=== PATIENT | male | born 1940 | race Caucasian/White ===

== ENCOUNTER 2017-02-03 16:27 | Inpatient (IN) ==
[2017-02-03] MEDS ORDERED: Ondansetron ODT 4 MG TAB.RAPDIS SL ONE (17:55)
[2017-02-03 18:31] LABS: Basophils % 0.1 %; Eosinophils % 0.1 %; Hematocrit 40.8 % (37.5-50.1); Hemoglobin 12.9 g/dL (12.9-16.9); Immature Granulocytes % 0.6 % (0-4); Lymphocytes # 0.8 K/mcL (0.6-4.6); Lymphocytes % 9.1 %; Mean Corpuscular HGB Conc 31.6 g/dL (31.6-35.5); Mean Corpuscular Volume 88.5 fL (83.0-100.0); Mean Platelet Volume 9.5 fL (9.4-12.4); Monocytes # 0.8 K/mcL (0.0-1.3); Monocytes % 9.1 %; Neutrophils # 7.4 K/mcL (1.6-8.9); Platelet Count 279 K/mcL (140-400); Red Blood Count 4.61 M/mcL (4.19-5.50); Red Cell Distribution Width 13.8 % (11.5-14.5)
--- NOTE | 2017-02-03 18:42 | Emergency Department Note ---
Disposition Clinical Impression: Small bowel obstruction Disposition: Admitted As Inpatient Condition: Undetermined Referrals: Roberto Gao Jr, MD [Primary Care Provider] - Forms: Work/School Release, ED Satisfaction Letter Time of Disposition: 21:26 Abdominal Pain HPI - General Chief Complaint: ED Abdominal Pain Stated Complaint: Abdominal Pains Time Seen by Provider: 02/03/17 18:13 Source: patient Mode of arrival: ambulatory Limitations: no limitations Nursing Notes Reviewed: Yes Vital Signs Reviewed: Yes - History of Present Illness HPI Narrative: 76-year-old male with extensive history of abdominal surgeries to include colon resection with ostomy, with re-anastomosis, arrives to [facility] emergency department complaining of worsening abdominal pain over the past year. The patient states that over the past 24 hours complaining of mid abdominal pain without radiation. The patient states it is crampy and colicky nature. The patient states it is severe. He states that he has associated nausea with dry heaves. The patient admits to normal caliber stools with the exception of intermittent episodes of bloody stool but is explosive in nature. The patient states that this has been ongoing for years now that he is having intermittent bloody stools. The patient had been seen by surgeon at [facility] for this in the past and had a colonoscopy with no radiology revealed. The patient denies any other complaints at this time. Pt Subjective Complaint: abdominal pain Location: diffuse Pain Severity: moderate Pain Scale: 5 Quality: cramping Improves with: nothing Worsens with: nothing Associated symptoms: Reports: nausea, vomiting, hematochezia. Denies: diarrhea , fever, chills, constipation, hematemesis, melena Treatments prior to arrival: none - Related Data Home Medications Medication Instructions Recorded Confirmed Lisinopril [Zestril] 20 mg PO DAILY 07/03/15 02/03/17 Multivitamin [Multi-Day Vitamins] 1 each PO DAILY 07/03/15 02/03/17 Gabapentin [Neurontin] 300 mg PO TID 02/03/17 02/03/17 Levothyroxine [Synthroid] 50 mcg PO 0602/03/17 02/03/17 Previous Rx's Medication Instructions Recorded Polyethylene Glycol 3350 [MiraLAX] 17 gm PO DAILY #30 powd.pack 05/12/16 Sucralfate [Carafate] 1 gm PO BID #60 tablet 05/12/16 Vitamin E (Dl,Tocopheryl Acet) 1,000 unit PO DAILY #30 capsule 10/29/16 [Vitamin E] Allergies Allergy/AdvReac Type Severity Reaction Status Date / Time Penicillins [PCN] Allergy Rash Verified 03/04/16 21:56 All systems ED: reviewed and negative except as stated. Constitutional: Denies: fever, chills, weakness, weight change Eyes: Denies: eye pain, eye discharge, vision change ENT ED: Denies: ear pain, throat pain, dental pain, hearing loss, epistaxis, congestion, dysphagia Cardiovascular: Denies: chest pain, palpitations, dyspnea on exertion, edema, syncope Respiratory: Denies: cough, dyspnea, wheezes, hemoptysis, stridor Gastrointestinal: Reports: abdominal pain, nausea, vomiting, hematochezia. Denies: diarrhea, constipation, hematemesis, melena Musculoskeletal: Denies: back pain, neck pain, arthralgia, myalgia Integumentary: Denies: rash, abrasion, lesions Neurological: Denies: headache, weakness, numbness, paresthesias, confusion, abnormal gait, vertigo Abdominal Pain PMH - Past Medical History Medical history: Reports: asthma, cancer, hypertension, other Male Surgical History: Reports: herniorrhaphy Psychiatric history: Reports: no psych history - Social History Smoking status: Never smoker Alcohol use: Reports: none Drug use: Reports: none Physical Exam - General Limitations: no limitations General appearance: alert - Head Head exam: atraumatic, normocephalic, normal inspection - Eye Eye exam: Present: normal appearance, PERRL, EOMI - ENT ENT exam: normal exam, normal oropharynx, mucous membranes moist - Neck Neck exam: Present: normal inspection, full ROM, trachea midline - Chest Chest inspection: Present: normal inspection, symmetric chest wall rise - Respiratory Respiratory exam: Present: normal lung sounds bilaterally - Cardiovascular Cardiovascular exam: Present: regular rate, normal rhythm, normal heart sounds - Abdominal Exam Abdominal exam: Present: soft, tenderness, distention, normal bowel sounds, scar. Absent: guarding, rebound, rigidity - Extremities Exam Extremities exam: Present: normal inspection, full ROM. Absent: tenderness, pedal edema - Back Exam Back exam: Present: normal inspection, full ROM. Absent: tenderness - Neurological Exam Neurological exam: Present: alert, oriented X3 - Skin Skin exam: Present: warm, dry, intact, normal color Course Vital Signs Temperature 97.3 F L 02/03/17 16:48 Pulse Rate 85 02/03/17 16:48 Respiratory Rate 18 02/03/17 16:48 Blood Pressure 122/84 02/03/17 16:48 O2 Sat by Pulse Oximetry 94 02/03/17 16:48 Temperature 97.3 F L 02/03/17 16:48 Pulse Rate 85 02/03/17 16:48 Respiratory Rate 18 02/03/17 16:48 Blood Pressure 122/84 02/03/17 16:48 O2 Sat by Pulse Oximetry 94 02/03/17 16:48 Oxygen Delivery Oxygen Delivery Room Air Abdominal Pain - MDM Narrative Medical decision making narrative: CT scan demonstrates concern for small bowel obstruction versus enteritis. After speaking with Dr. Bynum in surgery he recommends admitting the patient to the medicine service with a consult to surgery. - Lab Data Lab results reviewed: Yes I reviewed the patient's lab results. Result diagrams: 02/03/17 18:19 02/03/17 18:19 Lab Results 02/03/17 02/03/17 02/03/17 Range/Units 18:19 18:19 19:27 WBC 9.1 (4.3-11.1) K/mcL RBC 4.61 (4.19-5.50) M/mcL Hgb 12.9 (12.9-16.9) g/dL Hct 40.8 (37.5-50.1) % MCV 88.5 (83.0-100.0) fL MCH 28.0 (28.0-33.3) pg MCHC 31.6 (31.6-35.5) g/dL RDW 13.8 (11.5-14.5) % Plt Count 279 (140-400) K/mcL MPV 9.5 (9.4-12.4) fL Immature Gran % 0.6 (0-4) % Seg Neutrophils % 81.0 % Lymphocytes % 9.1 % Monocytes % 9.1 % Eosinophils % 0.1 % Basophils % 0.1 % Neutrophils # 7.4 (1.6-8.9) K/mcL Lymphocytes # 0.8 (0.6-4.6) K/mcL Monocytes # 0.8 (0.0-1.3) K/mcL Eosinophils # 0.0 (0.0-0.6) K/mcL Basophils # 0.0 (0.0-0.2) K/mcL Sodium 138 (136-145) mEq/L Potassium 4.2 (3.5-4.5) mEq/L Chloride 105 (98-109) mEq/L Carbon Dioxide 21 (19-29) mEq/L BUN 28 H (8-26) mg/dL Creatinine 1.36 H (0.72-1.25) mg/dL Est GFR ( Amer) > 60 (> 60) Est GFR (Non-Af Amer) 51 L (> 60) BUN/Creatinine Ratio 21 (6-26) Glucose 118 H (70-99) mg/dL Calculated Osmolality 293 (280-300) Lactic Acid (0.5-2.2) mmol/L Calcium 9.8 (8.6-10.8) mg/dL Total Bilirubin 0.9 (0.2-1.2) mg/dL Direct Bilirubin 0.3 (0.0-0.5) mg/dL Indirect Bilirubin 0.6 (0.0-1.2) mg/dL AST 19 (5-34) Units/L ALT 12 (0-55) Units/L Alkaline Phosphatase 114 (38-126) Units/L Serum Total Protein 8.2 (6.0-8.3) g/dL Albumin 3.9 (3.5-5.0) g/dL Globulin 4.3 H (2.4-3.5) g/dL Albumin/Globulin Ratio 0.9 L (1.1-2.2) Amylase 79 (25-125) Units/L Lipase 45 (8-78) Units/L Urine Color Dark Yellow (Yellow) Urine Clarity Clear (Clear) Urine pH 5.5 (5.0-8.0) pH Units Ur Specific [place] > 1.030 H (1.010-1.025) Urine Protein Trace (Neg-Trace) mg/dL Urine Glucose (UA) Normal (Normal) mg/dL Urine Ketones Trace H (Negative) mg/dL Urine Blood Negative (Negative) Urine Nitrite Negative (Negative) Urine Bilirubin Small H (Negative) Urine Urobilinogen Normal (Normal) mg/dL Ur Leukocyte Esterase Negative (Negative) Urine Microscopic RBC 0-3 (0-3) per hpf Urine Microscopic WBC 3-5 H (0-3) per hpf Ur Squamous Epith Cells Many H (None-Few) per lpf Urine Bacteria None Seen (None-Few) per hpf Hyaline Casts Few (None-Few) per lpf Ur Culture Indicated? NO (NO) 02/03/17 Range/Units 21:00 WBC (4.3-11.1) K/mcL RBC (4.19-5.50) M/mcL Hgb (12.9-16.9) g/dL Hct (37.5-50.1) % MCV (83.0-100.0) fL MCH (28.0-33.3) pg MCHC (31.6-35.5) g/dL RDW (11.5-14.5) % Plt Count (140-400) K/mcL MPV (9.4-12.4) fL Immature Gran % (0-4) % Seg Neutrophils % % Lymphocytes % % Monocytes % % Eosinophils % % Basophils % % Neutrophils # (1.6-8.9) K/mcL Lymphocytes # (0.6-4.6) K/mcL Monocytes # (0.0-1.3) K/mcL Eosinophils # (0.0-0.6) K/mcL Basophils # (0.0-0.2) K/mcL Sodium (136-145) mEq/L Potassium (3.5-4.5) mEq/L Chloride (98-109) mEq/L Carbon Dioxide (19-29) mEq/L BUN (8-26) mg/dL Creatinine (0.72-1.25) mg/dL Est GFR ( Amer) (> 60) Est GFR (Non-Af Amer) (> 60) BUN/Creatinine Ratio (6-26) Glucose (70-99) mg/dL Calculated Osmolality (280-300) Lactic Acid 1.0 (0.5-2.2) mmol/L Calcium (8.6-10.8) mg/dL Total Bilirubin (0.2-1.2) mg/dL Direct Bilirubin (0.0-0.5) mg/dL Indirect Bilirubin (0.0-1.2) mg/dL AST (5-34) Units/L ALT (0-55) Units/L Alkaline Phosphatase (38-126) Units/L Serum Total Protein (6.0-8.3) g/dL Albumin (3.5-5.0) g/dL Globulin (2.4-3.5) g/dL Albumin/Globulin Ratio (1.1-2.2) Amylase (25-125) Units/L Lipase (8-78) Units/L Urine Color (Yellow) Urine Clarity (Clear) Urine pH (5.0-8.0) pH Units Ur Specific [place] (1.010-1.025) Urine Protein (Neg-Trace) mg/dL Urine Glucose (UA) (Normal) mg/dL Urine Ketones (Negative) mg/dL Urine Blood (Negative) Urine Nitrite (Negative) Urine Bilirubin (Negative) Urine Urobilinogen (Normal) mg/dL Ur Leukocyte Esterase (Negative) Urine Microscopic RBC (0-3) per hpf Urine Microscopic WBC (0-3) per hpf Ur Squamous Epith Cells (None-Few) per lpf Urine Bacteria (None-Few) per hpf Hyaline Casts (None-Few) per lpf Ur Culture Indicated? (NO)
[2017-02-03 18:43] LABS: Alanine Aminotransferase 12 Units/L (0-55); Albumin 3.9 g/dL (3.5-5.0); Albumin/Globulin Ratio 0.9 (1.1-2.2); Alkaline Phosphatase 114 Units/L (38-126); Amylase 79 Units/L (25-125); Aspartate Amino Transferase 19 Units/L (5-34); BUN/Creatinine Ratio 21 (6-26); Bilirubin,Direct 0.3 mg/dL (0.0-0.5); Bilirubin,Indirect 0.6 mg/dL (0.0-1.2); Bilirubin,Total 0.9 mg/dL (0.2-1.2); Blood Urea Nitrogen 28 mg/dL (8-26); Calcium 9.8 mg/dL (8.6-10.8); Carbon Dioxide 21 mEq/L (19-29); Chloride 105 mEq/L (98-109); Globulin 4.3 g/dL (2.4-3.5); Glucose 118 mg/dL (70-99); Lipase 45 Units/L (8-78); Osmolality,Calculated 293 (280-300); Potassium 4.2 mEq/L (3.5-4.5); Sodium 138 mEq/L (136-145); Total Protein 8.2 g/dL (6.0-8.3); eGFR For African Americans > 60 (> 60); eGFR For Non-African Americans 51 (> 60)
--- NOTE | 2017-02-03 18:58 | Emergency Department Note ---
Disposition Clinical Impression: Small bowel obstruction Disposition: Admitted As Inpatient Condition: Undetermined General Adult HPI - General Chief complaint: ED Abdominal Pain Stated complaint: Abdominal Pains Time Seen by Provider: 02/03/17 18:13 Source: patient Mode of arrival: ambulatory Limitations: no limitations - History of Present Illness Pain Scale: 5 - Related Data Home Medications Medication Instructions Recorded Confirmed Lisinopril [Zestril] 20 mg PO DAILY 07/03/15 02/03/17 Multivitamin [Multi-Day Vitamins] 1 each PO DAILY 07/03/15 02/03/17 Gabapentin [Neurontin] 300 mg PO TID 02/03/17 02/03/17 Levothyroxine [Synthroid] 50 mcg PO 0630 02/03/17 02/03/17 Previous Rx's Medication Instructions Recorded Polyethylene Glycol 3350 [MiraLAX] 17 gm PO DAILY #30 powd.pack 05/12/16 Sucralfate [Carafate] 1 gm PO BID #60 tablet 05/12/16 Vitamin E (Dl,Tocopheryl Acet) 1,000 unit PO DAILY #30 capsule 10/29/16 [Vitamin E] Allergies Allergy/AdvReac Type Severity Reaction Status Date / Time Penicillins [PCN] Allergy Rash Verified 03/04/16 21:56 Constitutional: Denies: fever, chills, weakness, weight change Eyes: Denies: eye pain, eye discharge, vision change ENT ED: Denies: ear pain, throat pain, dental pain, hearing loss, epistaxis, congestion, dysphagia Cardiovascular: Denies: chest pain, palpitations, dyspnea on exertion, edema, syncope Respiratory: Denies: cough, dyspnea, wheezes, hemoptysis, stridor Gastrointestinal: Reports: abdominal pain, nausea, vomiting, hematochezia. Denies: diarrhea, constipation, hematemesis, melena Musculoskeletal: Denies: back pain, neck pain, arthralgia, myalgia Integumentary: Denies: rash, abrasion, lesions Neurological: Denies: headache, weakness, numbness, paresthesias, confusion, abnormal gait, vertigo Past Medical History - Past Medical History Medical history: Reports: asthma, cancer, hypertension, other Surgical history: Reports: herniorrhaphy, other Psychiatric history: Reports: no psych history - Social History Smoking Status: Never smoker Smokeless Tobacco Status: No Alcohol use: Reports: none Drug use: Reports: none Physical Exam - General Limitations: no limitations General appearance: alert Course - Reevaluation(s) Reevaluation #1: I saw the patient with the resident, Dr. Maher. Patient presents with a complaint of abdominal pain that is located just to the left of the midline in the Umbilical area. His abdominal wall anatomy is abnormal in that he has had colon resection and colostomy with subsequent reversal. He says his pain is there when he standing but not when he is laying down. On physical examination there is tenderness to the abdominal wall musculature to the left of the midline. I do not feel a discrete hernia. However his anatomy is abnormal. Certainly do not see any indication of a surgical abdominal process at this moment. He has a lot of medical problems which warrant a workup for abdominal pain. Labs so far looks good. We will CT his belly. Disposition will be based on diagnostic results and reevaluation. Time: 18:57 Vital Signs Temperature 97.3 F L 02/03/17 16:48 Pulse Rate 85 02/03/17 16:48 Respiratory Rate 18 02/03/17 16:48 Blood Pressure 122/84 02/03/17 16:48 O2 Sat by Pulse Oximetry 94 02/03/17 16:48 Temperature 97.3 F L 02/03/17 16:48 Pulse Rate 85 02/03/17 16:48 Respiratory Rate 18 02/03/17 16:48 Blood Pressure 122/84 02/03/17 16:48 O2 Sat by Pulse Oximetry 94 02/03/17 16:48 Oxygen Delivery Oxygen Delivery Room Air Medical Decision Making - Lab Data Result diagrams: 02/03/17 18:19 02/03/17 18:19 Lab Results 02/03/17 02/03/17 02/03/17 Range/Units 18:19 18:19 19:27 WBC 9.1 (4.3-11.1) K/mcL RBC 4.61 (4.19-5.50) M/mcL Hgb 12.9 (12.9-16.9) g/dL Hct 40.8 (37.5-50.1) % MCV 88.5 (83.0-100.0) fL MCH 28.0 (28.0-33.3) pg MCHC 31.6 (31.6-35.5) g/dL RDW 13.8 (11.5-14.5) % Plt Count 279 (140-400) K/mcL MPV 9.5 (9.4-12.4) fL Immature Gran % 0.6 (0-4) % Seg Neutrophils % 81.0 % Lymphocytes % 9.1 % Monocytes % 9.1 % Eosinophils % 0.1 % Basophils % 0.1 % Neutrophils # 7.4 (1.6-8.9) K/mcL Lymphocytes # 0.8 (0.6-4.6) K/mcL Monocytes # 0.8 (0.0-1.3) K/mcL Eosinophils # 0.0 (0.0-0.6) K/mcL Basophils # 0.0 (0.0-0.2) K/mcL Sodium 138 (136-145) mEq/L Potassium 4.2 (3.5-4.5) mEq/L Chloride 105 (98-109) mEq/L Carbon Dioxide 21 (19-29) mEq/L BUN 28 H (8-26) mg/dL Creatinine 1.36 H (0.72-1.25) mg/dL Est GFR ( Amer) > 60 (> 60) Est GFR (Non-Af Amer) 51 L (> 60) BUN/Creatinine Ratio 21 (6-26) Glucose 118 H (70-99) mg/dL Calculated Osmolality 293 (280-300) Lactic Acid (0.5-2.2) mmol/L Calcium 9.8 (8.6-10.8) mg/dL Total Bilirubin 0.9 (0.2-1.2) mg/dL Direct Bilirubin 0.3 (0.0-0.5) mg/dL Indirect Bilirubin 0.6 (0.0-1.2) mg/dL AST 19 (5-34) Units/L ALT 12 (0-55) Units/L Alkaline Phosphatase 114 (38-126) Units/L Serum Total Protein 8.2 (6.0-8.3) g/dL Albumin 3.9 (3.5-5.0) g/dL Globulin 4.3 H (2.4-3.5) g/dL Albumin/Globulin Ratio 0.9 L (1.1-2.2) Amylase 79 (25-125) Units/L Lipase 45 (8-78) Units/L Urine Color Dark Yellow (Yellow) Urine Clarity Clear (Clear) Urine pH 5.5 (5.0-8.0) pH Units Ur Specific [place] > 1.030 H (1.010-1.025) Urine Protein Trace (Neg-Trace) mg/dL Urine Glucose (UA) Normal (Normal) mg/dL Urine Ketones Trace H (Negative) mg/dL Urine Blood Negative (Negative) Urine Nitrite Negative (Negative) Urine Bilirubin Small H (Negative) Urine Urobilinogen Normal (Normal) mg/dL Ur Leukocyte Esterase Negative (Negative) Urine Microscopic RBC 0-3 (0-3) per hpf Urine Microscopic WBC 3-5 H (0-3) per hpf Ur Squamous Epith Cells Many H (None-Few) per lpf Urine Bacteria None Seen (None-Few) per hpf Hyaline Casts Few (None-Few) per lpf Ur Culture Indicated? NO (NO) 02/03/17 Range/Units 21:00 WBC (4.3-11.1) K/mcL RBC (4.19-5.50) M/mcL Hgb (12.9-16.9) g/dL Hct (37.5-50.1) % MCV (83.0-100.0) fL MCH (28.0-33.3) pg MCHC (31.6-35.5) g/dL RDW (11.5-14.5) % Plt Count (140-400) K/mcL MPV (9.4-12.4) fL Immature Gran % (0-4) % Seg Neutrophils % % Lymphocytes % % Monocytes % % Eosinophils % % Basophils % % Neutrophils # (1.6-8.9) K/mcL Lymphocytes # (0.6-4.6) K/mcL Monocytes # (0.0-1.3) K/mcL Eosinophils # (0.0-0.6) K/mcL Basophils # (0.0-0.2) K/mcL Sodium (136-145) mEq/L Potassium (3.5-4.5) mEq/L Chloride (98-109) mEq/L Carbon Dioxide (19-29) mEq/L BUN (8-26) mg/dL Creatinine (0.72-1.25) mg/dL Est GFR ( Amer) (> 60) Est GFR (Non-Af Amer) (> 60) BUN/Creatinine Ratio (6-26) Glucose (70-99) mg/dL Calculated Osmolality (280-300) Lactic Acid 1.0 (0.5-2.2) mmol/L Calcium (8.6-10.8) mg/dL Total Bilirubin (0.2-1.2) mg/dL Direct Bilirubin (0.0-0.5) mg/dL Indirect Bilirubin (0.0-1.2) mg/dL AST (5-34) Units/L ALT (0-55) Units/L Alkaline Phosphatase (38-126) Units/L Serum Total Protein (6.0-8.3) g/dL Albumin (3.5-5.0) g/dL Globulin (2.4-3.5) g/dL Albumin/Globulin Ratio (1.1-2.2) Amylase (25-125) Units/L Lipase (8-78) Units/L Urine Color (Yellow) Urine Clarity (Clear) Urine pH (5.0-8.0) pH Units Ur Specific [place] (1.010-1.025) Urine Protein (Neg-Trace) mg/dL Urine Glucose (UA) (Normal) mg/dL Urine Ketones (Negative) mg/dL Urine Blood (Negative) Urine Nitrite (Negative) Urine Bilirubin (Negative) Urine Urobilinogen (Normal) mg/dL Ur Leukocyte Esterase (Negative) Urine Microscopic RBC (0-3) per hpf Urine Microscopic WBC (0-3) per hpf Ur Squamous Epith Cells (None-Few) per lpf Urine Bacteria (None-Few) per hpf Hyaline Casts (None-Few) per lpf Ur Culture Indicated? (NO) Attestation Statement - Attestation Attestation: I, Dr. Sabillon, examined this patient [id number] and my medical decision- making was reviewed with Dr. Maher, Resident Physician. I agree with the documented findings, disposition and treatment plan as described except to the extent set forth below. Please review my progress note for details.
[2017-02-03 19:43] LABS: Bilirubin,Urine Small (Negative); Blood,Urine Negative (Negative); Clarity,Urine Clear (Clear); Color,Urine Dark Yellow (Yellow); Glucose,Urine (UA) Normal (Normal); Ketones,Urine Trace mg/dL (Negative); Leukocyte Esterase,Urine Negative (Negative); Nitrite,Urine Negative (Negative); PH,Urine 5.5 pH Units (5.0-8.0); Protein,Urine Trace mg/dL (Neg-Trace); Specific Gravity,Urine > 1.030 (1.010-1.025); Urobilinogen,Urine Normal (Normal)
[2017-02-03 19:47] LABS: Bacteria,Urine None Seen per hpf (None-Few); Hyaline Casts,Urine Few per lpf (None-Few); RBC,Urine 0-3 per hpf (0-3); Squamous Epithelial Cell,Urine Many per lpf (None-Few)
[2017-02-03] MEDS ORDERED: 0.9 % Sodium Chloride 1,000 ML IVC SCH (20:45)
[2017-02-03] MEDS ORDERED: Ondansetron 4 MG/2 ML VIAL IVP PRN (21:56)
[2017-02-03] MEDS ORDERED: Naloxone 0.4 MG/ML INJ IVP PRN (21:56)
[2017-02-03] MEDS ORDERED: Acetaminophen 325 MG TABLET PO PRN (21:56)
--- NOTE | 2017-02-03 22:34 | Internal Med History&Physical ---
Date of Encounter: 02/03/17 Time of Encounter: 22:32 Assessment and Plan (1) Enteritis Current visit: Yes Status: Acute Patient is acute enteritis/colitis History of sudden onset abdominal pain, vomiting. Patient having regular bowel movements and passing gas. Abdominal exam reveals tenderness to palpation with rebound tenderness in the left and right lower quadrants. Bowel sounds present. CT scan evidence of enteritis with ileus. Laboratory data reviewed. Patient will be admitted to inpatient status. Expected to be in the hospital for at least 2 midnights. High risk due to risk of sepsis and the need for intravenous antibody therapy. Expected discharge disposition is to home. Patient be placed on intravenous antibiotics due to his exam finding of rebound tenderness and concern for peritonitis. Clear liquid diet. Surgical consult. Further management to depend on his clinical progress and recommendations from surgery. (2) JESSICA (acute kidney injury) Current visit: Yes Status: Acute Intravenous fluids. This is most likely due to poor by mouth intake due to his abdominal pain and enteritis. Avoid nephrotoxic agents and hypotension. Follow renal function and urine output Renal ultrasound. (3) HTN (hypertension) Current visit: Yes Status: Chronic Adequately controlled. Continue current home medications. Qualifiers: Hypertension type: essential hypertension Qualified Code(s): I10 - Essential (primary) hypertension Internal Medicine - H&P: HPI Chief complaint: Abdominal pain and vomiting Admitted From: Emergency Dept Plans for Post Hospital Care: Home History of present illness: Mr. Escalera is a 76 year old male with a history of colon cancer, prostate cancer status post colectomy, colostomy and colostomy reversal who presents to the hospital due to sudden onset abdominal pain that started yesterday afternoon was 10/10 intensity in the middle of the abdomen without any radiation that was dull in nature. The pain was aggravated with bending down and activity and relieved with rest and pain medications. He reports that he had an episode of vomiting prior to presentation to the hospital. He also reports chills but denies any fevers. He denies having any diarrhea or constipation. In fact, the patient states that he had a regular bowel movement one hour prior to being seen by me. He denies any chest pain or shortness of breath, cough, wheezing, palpitations. He does report feeling lightheaded last night and had to sit down to stop from passing out. He states that the pain in his abdomen has been intermittent lasting about 3-4 minutes at a time with no specific precipitating factor. Past Med Surg Social Fam HX - Past Medical History Attestation: Yes The following information was validated with the patient. Source: patient Medical history: asthma, cancer (Colon and prostrate s/p radiation and chemotherapy), hypertension, other Psychiatric history: no psych history - Past Surgical History Surgical History: colectomy, herniorrhaphy, other (Colostomy and reversal) - Social History Smoking Status: Former smoker Smokeless Tobacco Status: No Alcohol use: none Drug use: none Occupational status: employed Current living situation: Home, With Family Activity Level: Independent ambulation - Additional Family History Additional family history: Reviewed; Not pertinent Internal Medicine - H&P: Meds Lisinopril [Zestril] 20 mg PO DAILY 07/03/15 [History] Multivitamin [Multi-Day Vitamins] 1 each PO DAILY 07/03/15 [History] Polyethylene Glycol 3350 [MiraLAX] 17 gm PO DAILY #30 powd.pack 05/12/16 [Rx] Sucralfate [Carafate] 1 gm PO BID #60 tablet 05/12/16 [Rx] Vitamin E (Dl,Tocopheryl Acet) [Vitamin E] 1,000 unit PO DAILY #30 capsule 10/29 [Rx] Gabapentin [Neurontin] 300 mg PO TID 02/03/17 [History] Levothyroxine [Synthroid] 50 mcg PO 0630 02/03/17 [History] Allergies Penicillins [PCN] Allergy (Verified 03/04/16 21:56) Rash All Systems PM: A 10-system review of systems was performed and is negative for pertinent findings except as documented above in the HPI. Review of systems: 10 systems have been reviewed and are negative except as mentioned in the history of present illness - Constitutional Vitals: Temp Pulse Resp BP Pulse Ox 97.3 F L 85 18 122/84 94 02/03/17 16:48 02/03/17 16:48 02/03/17 16:48 02/03/17 16:48 02/03/17 16:48 Exam: Gen.: Lying in bed. Mild distress. Eyes: Pupils equal, round and reactive to light. Extraocular muscles intact. ENT: Dry mucous membranes. No oropharyngeal erythema or discharge. Chest: Clear to auscultation bilaterally. No adventitious sounds present. CVS: First and second heart sounds present. No murmurs, rubs or gallops. Left lower extremity edema for 1+ pitting pedal. Abdomen: Soft, tenderness to palpation in the right and left lower quadrants with rebound tenderness. No guarding or rigidity; nondistended. Bowel sounds present. Midline scar in the lower abdomen and the left lower quadrant from prior surgeries. Skin: No decubitus ulcers appreciated. GOLD MINER: No focal neuro deficits present. Psychiatric: Alert, awake and oriented to time, place and person. Lymphatic system: No lymphadenopathy appreciated Internal Med - H&P Results - Labs CBC & Chem 7: 02/03/17 18:19 02/03/17 18:19 - Diagnostic Studies CT scan - abdomen Status: image reviewed by me (left lower small bowel edema insistent with enteritis with ileus versus partial small bowel obstruction)
[2017-02-03] MEDS: *HR* Heparin 5,000 UNIT/ML VIAL SQ SCH (23:34)
[2017-02-04] MEDS: 0.9 % Sodium Chloride 1,000 ML IVC SCH ×2 (00:34→13:44)
[2017-02-04] MEDS: MetroNIDAZOLE 500 MG/100 ML 500 MG/100 ML BAG IVPB SCH ×3 (02:17→20:27)
[2017-02-04] MEDS: *HR* Heparin 5,000 UNIT/ML VIAL SQ SCH (06:08)
[2017-02-04 06:22] LABS: Basophils % 0.2 %; Eosinophils # 0.1 K/mcL (0.0-0.6); Eosinophils % 1.2 %; Hematocrit 32.2 % (37.5-50.1); Hemoglobin 10.2 g/dL (12.9-16.9); Immature Granulocytes % 0.5 % (0-4); Lymphocytes # 0.9 K/mcL (0.6-4.6); Lymphocytes % 14.5 %; Mean Corpuscular HGB Conc 31.7 g/dL (31.6-35.5); Mean Corpuscular Hemoglobin 28.4 pg (28.0-33.3); Mean Corpuscular Volume 89.7 fL (83.0-100.0); Mean Platelet Volume 9.5 fL (9.4-12.4); Monocytes # 0.5 K/mcL (0.0-1.3); Monocytes % 8.9 %; Neutrophils # 4.5 K/mcL (1.6-8.9); Platelet Count 204 K/mcL (140-400); Red Blood Count 3.59 M/mcL (4.19-5.50); Red Cell Distribution Width 13.9 % (11.5-14.5); Segmented Neutrophils % 74.7 %
[2017-02-04 06:54] LABS: Alanine Aminotransferase 9 Units/L (0-55); Albumin/Globulin Ratio 0.9 (1.1-2.2); Alkaline Phosphatase 85 Units/L (38-126); Aspartate Amino Transferase 15 Units/L (5-34); BUN/Creatinine Ratio 23 (6-26); Bilirubin,Total 0.6 mg/dL (0.2-1.2); Blood Urea Nitrogen 26 mg/dL (8-26); Carbon Dioxide 23 mEq/L (19-29); Chloride 111 mEq/L (98-109); Globulin 3.2 g/dL (2.4-3.5); Glucose 92 mg/dL (70-99); Osmolality,Calculated 294 (280-300); Potassium 4.1 mEq/L (3.5-4.5); Sodium 140 mEq/L (136-145); eGFR For African Americans > 60 (> 60); eGFR For Non-African Americans > 60 (> 60)
[2017-02-04 06:56] LABS: Calcium 8.2 mg/dL (8.6-10.8); Total Protein 6.2 g/dL (6.0-8.3)
[2017-02-04] MEDS: Lactobacillus 1 EACH CAP.SPRINK PO SCH ×2 (08:52→20:27)
[2017-02-04] MEDS: Multivit/Ca/Min/Fe/FA 1 TAB TABLET PO SCH (08:53)
[2017-02-04] MEDS: Sucralfate 1 GM TABLET PO SCH ×2 (08:53→20:27)
[2017-02-04] MEDS: Gabapentin 300 MG CAPSULE PO SCH ×3 (08:53→20:27)
--- NOTE | 2017-02-04 13:33 | General Surgery Consult Note ---
Date of Encounter: 02/04/17 Time of Encounter: 13:30 Assessment and Plan (1) Enteritis Current Visit: Yes Status: Acute The patient has evidence of enteritis on CAT scan. There is a suggestion of bowel obstruction however clinically the patient has no nausea or vomiting and is tolerating oral intake. He had normal bowel movement yesterday. I believe the findings are consistent with enteritis. His physical examination is essentially negative and I will be glad to follow along with you. Certainly no evidence of surgical abdomen or mechanical obstruction at this point. I personally reviewed his CAT scan. I find that there is indeed enteritis and a very small pre-peritoneal fat containing incisional hernia with no involvement of bowel. He has several dilated small bowel loops and mucosal inflammation and thickening. Findings are consistent with enteritis. I do not believe that the patient clinically has bowel obstruction History of Present Illness Consult date: 02/04/17 Reason for consult: other (Abdominal pain and rectal bleeding) History of present illness: The patient is a long-standing established patient with our practice. He has previously had prostate cancer treated with radiation. He is also had sigmoid colon cancer that was fully obstructing and initially treated with resection and colostomy. He has had colostomy reversal. 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 Photographic documentation from the last endoscopy was reviewed. Several active bleeding areas were treated with argon beam coagulation. The patient now presents with a 2 day history of abdominal pain crampy in nature that seems to be localized to the left side of the abdomen. At time of examination and evaluation is not having any nausea and he is tolerating a clear liquid diet. He states he had a normal bowel movement yesterday. He sought evaluation in the emergency room for crampy abdominal pain and a CAT scan demonstrated enteritis. He also had several episodes of bleeding but his last bowel movement seemed to be clear. He now presents for evaluation and management of complex surgical abdomen Past Med Surg Social Fam HX - Past Medical History Medical history: asthma, cancer, hypertension, other Psychiatric history: no psych history - Past Surgical History Surgical History: colectomy, herniorrhaphy, other - Social History Smoking Status: Former smoker Smokeless Tobacco Status: No Alcohol use: none Drug use: none Medications and Allergies Lisinopril [Zestril] 20 mg PO DAILY 07/03/15 [History] Multivitamin [Multi-Day Vitamins] 1 each PO DAILY 07/03/15 [History] Polyethylene Glycol 3350 [MiraLAX] 17 gm PO DAILY #30 powd.pack 05/12/16 [Rx] Sucralfate [Carafate] 1 gm PO BID #60 tablet 05/12/16 [Rx] Vitamin E (Dl,Tocopheryl Acet) [Vitamin E] 1,000 unit PO DAILY #30 capsule 10/29 [Rx] Gabapentin [Neurontin] 300 mg PO TID 02/03/17 [History] Levothyroxine [Synthroid] 50 mcg PO 0630 02/03/17 [History] Allergies Penicillins [PCN] Allergy (Verified 03/04/16 21:56) Rash Review of Systems All systems PM: A 10-system review of systems was performed and is negative for pertinent findings except as documented above in the HPI. General Surgery Exam Initial Vital Signs Temp Pulse Resp BP Pulse Ox 97.3 F L 85 18 122/84 94 02/03/17 16:48 02/03/17 16:48 02/03/17 16:48 02/03/17 16:48 02/03/17 16:48 - General physical appearance well developed, well nourished, no distress - Neck no masses, no bruits, trachea midline, no lymphadectomy, no venous distension - Respiratory normal expansion, normal respiratory effort, clear to percussion, clear to auscultation - Cardiovascular Cardiovascular exam: Present: RRR, no murmurs/rubs/gallops - Abdomen Abdomen general surgery: Present: bowel sounds present, soft (No peritoneal signs. He has mild swelling at the upper portion of his midline incision. This correlates with CAT scan findings of a very small pre-peritoneal fat containing hernia with no involvement of bowel), tender Abdominal Tenderness: Present: LUQ, LLQ - Neurologic Present: CN 2-12 grossly intact, normal coordination, normal sensation - Psychiatric Psychiatric general surgery: Present: appropriate, oriented to person, oriented to place, oriented to time, speech is normal, memory intact Exam Initial Vital Signs Temp Pulse Resp BP Pulse Ox 97.3 F L 85 18 122/84 94 02/03/17 16:48 02/03/17 16:48 02/03/17 16:48 02/03/17 16:48 02/03/17 16:48 Results - Labs 02/04/17 05:40 02/04/17 05:40 Abnormal lab results RBC 3.59 M/mcL (4.19-5.50) L 02/04/17 05:40 Hgb 10.2 g/dL (12.9-16.9) L D 02/04/17 05:40 Hct 32.2 % (37.5-50.1) L 02/04/17 05:40 Chloride 111 mEq/L (98-109) H 02/04/17 05:40 Calcium 8.2 mg/dL (8.6-10.8) L D 02/04/17 05:40 Albumin 3.0 g/dL (3.5-5.0) L D 02/04/17 05:40 Albumin/Globulin Ratio 0.9 (1.1-2.2) L 02/04/17 05:40 Ur Specific [place] > 1.030 (1.010-1.025) H 02/03/17 19:27 Urine Ketones Trace mg/dL (Negative) H 02/03/17 19:27 Urine Bilirubin Small (Negative) H 02/03/17 19:27 Urine Microscopic WBC 3-5 per hpf (0-3) H 02/03/17 19:27 Ur Squamous Epith Cells Many per lpf (None-Few) H 02/03/17 19:27 Diabetes panel 02/04/17 Range/Units 05:40 Sodium 140 (136-145) mEq/L Potassium 4.1 (3.5-4.5) mEq/L Chloride 111 H (98-109) mEq/L Carbon Dioxide 23 (19-29) mEq/L BUN 26 (8-26) mg/dL Creatinine 1.13 (0.72-1.25) mg/dL Glucose 92 (70-99) mg/dL Calcium 8.2 L D (8.6-10.8) mg/dL AST 15 (5-34) Units/L ALT 9 (0-55) Units/L Alkaline Phosphatase 85 (38-126) Units/L Albumin 3.0 L D (3.5-5.0) g/dL Calcium panel 02/04/17 Range/Units 05:40 Calcium 8.2 L D (8.6-10.8) mg/dL Albumin 3.0 L D (3.5-5.0) g/dL Pituitary panel 02/04/17 Range/Units 05:40 Sodium 140 (136-145) mEq/L Potassium 4.1 (3.5-4.5) mEq/L Chloride 111 H (98-109) mEq/L Carbon Dioxide 23 (19-29) mEq/L BUN 26 (8-26) mg/dL Creatinine 1.13 (0.72-1.25) mg/dL Glucose 92 (70-99) mg/dL Calcium 8.2 L D (8.6-10.8) mg/dL Adrenal panel 02/04/17 Range/Units 05:40 Sodium 140 (136-145) mEq/L Potassium 4.1 (3.5-4.5) mEq/L Chloride 111 H (98-109) mEq/L Carbon Dioxide 23 (19-29) mEq/L BUN 26 (8-26) mg/dL Creatinine 1.13 (0.72-1.25) mg/dL Glucose 92 (70-99) mg/dL Calcium 8.2 L D (8.6-10.8) mg/dL Total Bilirubin 0.6 (0.2-1.2) mg/dL AST 15 (5-34) Units/L ALT 9 (0-55) Units/L Alkaline Phosphatase 85 (38-126) Units/L Albumin 3.0 L D (3.5-5.0) g/dL All other labs normal. Consult Discharge Plan - Plan Referrals: Roberto Gao Jr, MD [Primary Care Provider] -
--- NOTE | 2017-02-04 15:00 | Internal Med Progress Note ---
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 Patient received radiation for prostate cancer in 2011 and since then he has on and off GI bleed with abdominal pain. He follows with oncology, reports that abdominal pain is much better today. H&H is stable, will advance the diet to clears for now. Observe for today, if H&H stable by tomorrow and tolerating diet we will plan discharge. (2) Malignant neoplasm of prostate Current Visit: No Status: Chronic Assessment and plan: Follows with oncology at [facility]. Received radiation treatment in 2011. (3) Small bowel obstruction Current Visit: Yes Status: Acute Assessment and plan: passing gas and has bowel movement. Tolerated clear liquids well this morning. Surgery was consulted, clinically does not have signs of bowel obstruction at this time. Will advance the diet to soft for now. (4) HTN (hypertension) Current Visit: Yes Status: Chronic Assessment and plan: Blood pressure is stable, continue home medication. Qualifiers: Hypertension type: essential hypertension Qualified Code(s): I10 - Essential (primary) hypertension (5) JESSICA (acute kidney injury) Current Visit: Yes Status: Acute Assessment and plan: Resolved, - Subjective Interval history: Patient seen at the bedside, denies any abdominal pain at this time. Admitted for possible enteritis and concern for small bowel obstruction given CAT scan findings. However he does report that he has been passing gas and had bowel movement yesterday. He did report that he noted blood in the stool which is not unusual for him after the radiation for prostate cancer. - Constitutional Vitals: Temp Pulse Resp BP Pulse Ox 98.2 F 73 16 155/86 96 02/04/17 14:32 02/04/17 14:32 02/04/17 14:32 02/04/17 14:32 02/04/17 14:32 General appearance: Present: A&O X 3, no acute distress Exam: Gen.: Lying in bed. Mild distress. Eyes: Pupils equal, round and reactive to light. Extraocular muscles intact. ENT: Moist mucous membranes. Chest: Clear to auscultation bilaterally. No adventitious sounds present. CVS: First and second heart sounds present. No murmurs, rubs or gallops. Abdomen: Soft, nontender. No guarding or rigidity; nondistended. Bowel sounds present. Midline scar in the lower abdomen and the left lower quadrant from prior surgeries. Skin: No decubitus ulcers appreciated. STAFF DEVELOPMENT NURSE: No focal neuro deficits present. Psychiatric: Alert, awake and oriented to time, place and person. Lymphatic system: No lymphadenopathy appreciated Internal Medicine: Result - Labs CBC & Chem 7: 02/04/17 05:40 02/04/17 05:40 Labs: Short CBC 02/04/17 Range/Units 05:40 WBC 6.1 (4.3-11.1) K/mcL Hgb 10.2 L D (12.9-16.9) g/dL Hct 32.2 L (37.5-50.1) % Plt Count 204 (140-400) K/mcL Neutrophils # 4.5 (1.6-8.9) K/mcL BMP 02/04/17 05:40 Sodium 140 Potassium 4.1 Chloride 111 H Carbon Dioxide 23 BUN 26 Creatinine 1.13 Glucose 92 Calcium 8.2 L D Liver Function 02/04/17 Range/Units 05:40 Total Bilirubin 0.6 (0.2-1.2) mg/dL AST 15 (5-34) Units/L ALT 9 (0-55) Units/L Alkaline Phosphatase 85 (38-126) Units/L Albumin 3.0 L D (3.5-5.0) g/dL Consult Discharge Plan - Plan Referrals: Roberto Gao Jr, MD [Primary Care Provider] -
[2017-02-05] MEDS ORDERED: Lisinopril 20 MG TABLET PO SCH ×2 (06:00)
[2017-02-05] MEDS: 0.9 % Sodium Chloride 1,000 ML IVC SCH (06:19)
[2017-02-05] MEDS: Gabapentin 300 MG CAPSULE PO SCH ×2 (09:40→15:37)
[2017-02-05] MEDS: Sucralfate 1 GM TABLET PO SCH (09:41)
[2017-02-05] MEDS: Lactobacillus 1 EACH CAP.SPRINK PO SCH (09:41)
[2017-02-05] MEDS: Multivit/Ca/Min/Fe/FA 1 TAB TABLET PO SCH (09:41)
[2017-02-05] MEDS: MetroNIDAZOLE 500 MG/100 ML 500 MG/100 ML BAG IVPB SCH (09:41)
--- NOTE | 2017-02-05 10:48 | General Surgery Progress Note ---
Date of Encounter: 02/05/17 Time of Encounter: 10:45 - Assessment and Plan (1) Enteritis Current Visit: Yes Status: Acute The patient has evidence of enteritis on CAT scan. There is a suggestion of bowel obstruction however clinically the patient has no nausea or vomiting and is tolerating oral intake. He had normal bowel movement yesterday. I believe the findings are consistent with enteritis. His physical examination is essentially negative and I will be glad to follow along with you. Certainly no evidence of surgical abdomen or mechanical obstruction at this point. I personally reviewed his CAT scan. I find that there is indeed enteritis and a very small pre-peritoneal fat containing incisional hernia with no involvement of bowel. He has several dilated small bowel loops and mucosal inflammation and thickening. Findings are consistent with enteritis. I do not believe that the patient clinically has bowel obstruction 02/05/2017. The patient feels well and tolerated regular diet. He is passing flatus. He has no nausea or vomiting. White blood cell count is normal. No evidence of surgical abdomen or mechanical obstruction. We will sign off at this point. Subjective Narrative: The patient has much less abdominal discomfort today. Crampy abdominal pain is gone. He has normal bowel sounds. He is passing flatus. He tolerated regular diet this morning. No nausea or vomiting. Objective Vital Signs - Last 8 Hours Temp Pulse Resp BP Pulse Ox 02/05/17 08:19 97.8 F 76 17 156/72 97 02/05/17 04:03 97.2 F L 79 14 166/97 96 Intake and Output 02/04/17 02/05/17 02/05/17 23:59 07:59 15:59 Intake Total 720 / 720 996 / 996 Output Total 0 / 0 0 / 0 Balance 720 / 720 996 / 996 Intake: IV Fluids 480 / 480 756 / 756 0.9 % Sodium Chloride 1, 380 / 380 556 / 556 000 ML @ 80 mls/hr IVC . [id number] [facility] Rx#: [id number] Cipro Premix 400 MG/200 200 / 200 ML 400 mg In 200 ml @ 200 mls/hr IVPB Q12H [facility] Rx# :[id number] Flagyl Premix 500 MG/100 100 / 100 ML 500 mg In 100 ml @ 100 mls/hr IVPB BID [facility] Rx#: [id number] Oral 240 / 240 240 / 240 Output: Urine 0 / 0 0 / 0 Other: Meal Dinner Percent of Meal Consumed 100% # Voids 1 Weight 93.95 kg Patient Weight 02/05/17 23:59 Weight 93.95 kg - General physical appearance well developed, well nourished, no distress - Respiratory normal expansion, normal respiratory effort, clear to percussion, clear to auscultation - Cardiovascular Cardiovascular exam: Present: RRR, no murmurs/rubs/gallops - Abdomen Abdomen: Present: bowel sounds present, soft, non tender - Neurologic normal coordination, normal sensation - Psychiatric oriented to time, oriented to person, oriented to place, speech is normal, memory intact - Labs 02/04/17 05:40 02/04/17 05:40 - VTE Documentation of Mechanical Device: Intermittent pneumatic compression device Consult Discharge Plan - Plan Referrals: Roberto Gao Jr, MD [Primary Care Provider] -
--- NOTE | 2017-02-05 11:32 | Discharge Summary ---
Date of Encounter: 02/05/17 Time of Encounter: 11:27 - Discharge Diagnosis (1) Enteritis Priority: Primary Status: Acute (2) Malignant neoplasm of prostate Priority: Secondary Status: Chronic (3) Small bowel obstruction Priority: Primary Status: Acute (4) HTN (hypertension) Priority: Secondary Status: Chronic Qualifiers: Hypertension type: essential hypertension Qualified Code(s): I10 - Essential (primary) hypertension (5) JESSICA (acute kidney injury) Priority: Primary Status: Acute - Discharge Medications Prescriptions: Ciprofloxacin [Cipro] 500 mg PO BID 4 Days HYDROcodone/Acet 5/325 mg [[place]win 5-325 mg] 1 tab PO Q6H PRN #20 tab PRN Reason: Pain metroNIDAZOLE [Flagyl] 500 mg PO TID 4 Days Home Medications: Lisinopril [Zestril] 20 mg PO DAILY 07/03/15 [History] Multivitamin [Multi-Day Vitamins] 1 each PO DAILY 07/03/15 [History] Polyethylene Glycol 3350 [MiraLAX] 17 gm PO DAILY #30 powd.pack 05/12/16 [Rx] Sucralfate [Carafate] 1 gm PO BID #60 tablet 05/12/16 [Rx] Vitamin E (Dl,Tocopheryl Acet) [Vitamin E] 1,000 unit PO DAILY #30 capsule 10/29 [Rx] Gabapentin [Neurontin] 300 mg PO TID 02/03/17 [History] Levothyroxine [Synthroid] 50 mcg PO 0630 02/03/17 [History] Ciprofloxacin [Cipro] 500 mg PO BID 4 Days 02/05/17 [Rx] HYDROcodone/Acet 5/325 mg [[place] 5-325 mg] 1 tab PO Q6H PRN #20 tab 02/05/17 [Rx ] metroNIDAZOLE [Flagyl] 500 mg PO TID 4 Days 02/05/17 [Rx] Allergies/Adverse Reactions: Allergies Penicillins [PCN] Allergy (Verified 03/04/16 21:56) Rash Date of admission: 02/03/17 21:56 Primary care physician: Roberto Gao Jr, MD Consults: 02/04/17 00:08 Consult to Pastoral Services [CONS] Routine Comment: Discharging clinician: Maria G Lucas Anticipated date of discharge: 02/05/17 - Patient Status Disposition: Home, Self-Care Condition: Fair Functional capacity at discharge: independent ambulation Overall status at discharge: patient is back to baseline - Discharge Instructions Follow Up With: Yoly Willis CRYSTALLOGRAPHY TEACHER [Advanced Practice Nurse] - 02/12/17 10:00 am - Diet and Activity Activity: resume usual activities as tolerated Diet: other (soft diet for 1 week) Interval History: The patient is a long-standing established patient with our practice. He has previously had prostate cancer treated with radiation. He is also had sigmoid colon cancer that was fully obstructing and initially treated with resection and colostomy. He has had colostomy reversal. 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 Photographic documentation from the last endoscopy was reviewed. Several active bleeding areas were treated with argon beam coagulation. The patient now presents with a 2 day history of abdominal pain crampy in nature that seems to be localized to the left side of the abdomen. He was is admitted for further evaluation. CT abdomen showed enteritis along with possible small bowel obstruction partial. Gen. surgery was consulted. However clinically patient is moving his bowels with no nausea or vomiting. He was treated conservatively with IV fluids, bowel rest and pain medications. Hemoglobin has remained stable and he has had no further rectal bleed. His being discharged today in stable condition and will follow up with his oncology as outpatient. Hospital course: Mr. Escalera is a 76 year old male - Time Spent with Patient Total time spent providing and/or coordinating discharge services: - Constitutional Vitals: Temp Pulse Resp BP Pulse Ox 97.9 F 69 15 155/80 97 02/05/17 11:04 02/05/17 11:04 02/05/17 11:04 02/05/17 11:04 02/05/17 11:04 General appearance: Present: A&O X 3, no acute distress Exam: Gen.: Lying in bed. Mild distress. Eyes: Pupils equal, round and reactive to light. Extraocular muscles intact. ENT: Moist mucous membranes. Chest: Clear to auscultation bilaterally. No adventitious sounds present. CVS: First and second heart sounds present. No murmurs, rubs or gallops. Abdomen: Soft, nontender. No guarding or rigidity; nondistended. Bowel sounds present. Midline scar in the lower abdomen and the left lower quadrant from prior surgeries. Skin: No decubitus ulcers appreciated. CITY COLLECTOR: No focal neuro deficits present. Psychiatric: Alert, awake and oriented to time, place and person. Lymphatic system: No lymphadenopathy appreciated - VTE Documentation of Mechanical Device: Intermittent pneumatic compression device
[2017-02-05 14:58] VITALS: BP 146/93
== END 2017-02-05 16:38 | disposition home or self-care (01) | DRG 394 ==
LOC: EMEROO 16:27 → 3ANU 16:27
PROVIDERS: ADMIT Internal Medicine Sleep Medicine; ATTEND Internal Medicine Endocrinology, Diabetes & Metabolism